=== PATIENT | male | born 2005 ===

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

== ENCOUNTER → 2023-12-07 14:43 | Outpatient (BNVA) | payer OTHER, SELFPAY | PROVIDERS: PCP Internal Medicine; Visit Provider Dietitian, Registered ==

== ENCOUNTER → 2024-12-25 15:20 | Outpatient (BNVA) | payer OTHER, SELFPAY | PROVIDERS: PCP Internal Medicine | DX: Z00.00 Encounter for general adult medical examination without abnormal findings (principal); K21.9 Gastro-esophageal reflux disease without esophagitis; L91.0 Hypertrophic scar; E53.8 Deficiency of other specified B group vitamins; E66.9 Obesity, unspecified; J45.20 Mild intermittent asthma, uncomplicated; L85.8 Other specified epidermal thickening | CPT/HCPCS: 96127; 99395 ==

== ENCOUNTER 2025-04-10 13:28 | Outpatient (AMB) | payer OTHER, SELFPAY ==
--- NOTE | 2025-04-10 13:33 | A.OFFVIS_ITS ---
Vital Signs 04/10/25 13:41 Height 5 ft 9 in Weight 266 lb 4 oz BMI 39.3 BP 151/73 H Blood Pressure Location Lt brachial Position Sitting Pulse 75 Intake Visit Reasons: F/up Keloid~ Rt postauricular (Dr Bagley's pt ) Intake Note: Patient is seen in office for follow up visit, following right postauricular keloid ( Dr Bunch's pt ). Pt c/o: admits to continued lumps on both earlobes, left side is more painful L.OV:10/10/24 (observation) Certified Medical Transcriptionist Required: Yes Certified Medical Transcriptionist Language: Reclamation Supervisor Services: Certified Medical Transcriptionist Present Certified Medical Transcriptionist Name: Gayle WALLACE Accompanied by: Self / Same As Patient Allergies No Known Allergies [No Known Allergies*] Allergy (Unverified 04/10/25 13:41) Medication List - Last Reconciled 04/10/25 by Raul Vásquez MD ammonium lactate 12% (AmLactin) 1 appl topical DAILY cyanocobalamin (vitamin B-12) 1,000 mcg PO DAILY folic acid 1 mg PO DAILY HPI Comments Details: 20-year-old male patient presenting for evaluation of bilateral ear growths. He was previously evaluated by Dr. Bagley for the similar condition in the decision made to continued observation. Since last year the lesion has increased in size and causes some discomfort. He denies any bleeding or discharge from the ear lobes. The growths are in the region of a previous ear piercing. He no longer uses the piercing however. He presents to discuss possible excision of these bilateral earlobe growths. [facility] Medical History Obesity (BMI 30.0-34.9) GERD (gastroesophageal reflux disease) Asthma Surgical History H/O plastic surgery History of circumcision Family History Father Diabetes HTN (hypertension) Mother Depression Paternal Grandmother Colon cancer Maternal Grandfather Myocardial infarction Social History Household Members: Family Housing: Apartment Alcohol intake: never Patient Tobacco Use Status: Never used Tobacco Tobacco use type: Cigarette e-Cigarette/Vaping Use: Never Used Second Hand Smoke Exposure: No service: No Current occupational status: employed Current occupation: [employer] Cognitive needs: No Hearing needs: No Vision needs: No Review of Systems Const All systems reviewed & are unremarkable except as noted in HPI and below Physical Exam Vital Signs: Last Vital Signs Pulse 75 04/10/25 13:41 BP 151/73 H 04/10/25 13:41 BMI result Body Mass Index 39.3 Const General: cooperative and no acute distress Nutritional Appearance: well nourished Orientation/consciousness: patient oriented x3 Limitations: no limitations HEENT Other: Bilateral ear lobes with a 1 cm raised subcutaneous lesion located in the posterior earlobe, possibly an epidermal inclusion cyst as a result of the previous piercing. No redness or discharge is appreciated. Head: Yes normocephalic and Yes atraumatic Ears: hearing grossly normal bilaterally Resp Effort & Inspection: normal respiratory effort, no audible wheezes, no cough and no respiratory distress Cardio Jugular venous distension: no JVD GI Inspection: Yes normal to inspection Skin Other: Warm, dry, no rash Neuro General: patient oriented x3 Extrem General: Yes no clubbing, cyanosis or edema Assessment & Plan Assessment & Plan (1) Epidermal inclusion cyst: Comment: Bilateral ear lobes posterior Code(s): L72.0 - Epidermal cyst Category: Medical Plan 20-year-old male patient presenting with enlarging bilateral posterior earlobe masses possibly epidermal inclusion cyst. Patient has requested excision of both lesions and after discussion of the procedure, risks, and alternatives, consents to the surgery. He will be scheduled as a minor surgery under local anesthesia. Coding Level of Care Code Est Pt Level 4 (04847) Diagnoses Epidermal inclusion cyst L72.0
[2025-04-10 13:41] VITALS: BP 151/73; PULSE 75; BMI 39.3
== END 2025-04-10 13:49 | disposition home or self-care (01) ==
LOC: HO.HGS 13:29
PROVIDERS: PCP Internal Medicine; Visit Provider Surgery
DX: L72.0 Epidermal cyst (principal)
CPT/HCPCS: 99214

== ENCOUNTER → 2025-04-10 13:28 | Outpatient (BNVA) | payer OTHER, SELFPAY | PROVIDERS: PCP Internal Medicine; Visit Provider Surgery | DX: L72.0 Epidermal cyst (principal) | CPT/HCPCS: 99212 ==

== ENCOUNTER 2025-05-03 13:11 | Outpatient (REF) | payer OTHER, SELFPAY ==
[2025-05-03 13:55] VITALS: BP 173/79; PULSE 100; RESP 18; TEMP 36.8; O2SAT 100; BMI 33.0
--- NOTE | 2025-05-03 14:21 | W.PM.OPN ---
Operative Note Operative Note Date of Service: 05/03/25 Narrative: Preoperative diagnosis: Bilateral earlobe cysts Postoperative diagnosis: Same Procedure: Excision of bilateral earlobe cysts Surgeon: Raul Vásquez MD Type Photography Supervisor: KATERYNA Holley Anesthesia: Lidocaine 1% with epinephrine Indications for procedure: 20-year-old male patient presenting with bilateral earlobe cysts left measuring approximately 1 cm in the right measuring approximately 0.5 cm. These are located at the site of a previous ear piercing. He has requested excision of the bilateral ear cyst. Operative findings: Left ear cyst measuring 1 cm diameter, right ear cyst measuring 0.5 cm diameter Specimen: Bilateral ear cysts Estimated blood loss: 2 mL Complications: None Procedure details: Patient was brought to the minor surgery suite and placed in a supine position. The site of the surgery was confirmed in the bilateral earlobes posteriorly. After assuring informed consent the skin of the left earlobe was prepped with Betadine and draped in a sterile fashion. Local anesthesia consisting of 1% lidocaine with epinephrine was then infiltrated around the left ear cyst. A 15 blade scalpel was then used to create a elliptical incision oriented longitudinally around the palpable cyst. This was carried out through subcutaneous tissue and around the lesion wall. The lesion was passed off the table and sent to pathology for further examination. Light pressure was held to maintain hemostasis. Skin was then closed using interrupted 5 0 nylon suture. Sterile dressings consisting of a sterile bandage was then applied. Attention was then directed to the right ear where again the skin was prepped with Betadine and draped in a sterile fashion. Local anesthesia was then infiltrated below the posterior ear cyst. An elliptical incision was then created around the ear cyst and carried down into the subcutaneous tissue. The lesion was then excised from the subcutaneous tissue and passed off the table. This was then sent to pathology for further examination. Light pressure was held to maintain hemostasis. Skin was then closed using interrupted 5 0 nylon sutures. Sterile dressings consisting of a sterile Band-Aid was then applied. The patient tolerated the procedure well. He was discharged to home in stable condition.
== END 2025-05-03 13:12 | disposition home or self-care (01) ==
LOC: HO.MS 13:11
PROVIDERS: PCP Internal Medicine; Visit Provider Surgery
PROC: (CPT 11441; principal; 2025-05-03 14:00)
DX: L72.0 Epidermal cyst (principal); L91.0 Hypertrophic scar
CPT/HCPCS: 11441; 11440; 88304; 88305; J2004

== ENCOUNTER → 2025-05-03 13:11 | Outpatient (BNV) | payer OTHER, SELFPAY | PROVIDERS: PCP Internal Medicine; Visit Provider Surgery | DX: L91.0 Hypertrophic scar (principal) | CPT/HCPCS: 11440; 11442 ==

== ENCOUNTER 2025-05-14 12:35 | Outpatient (AMB) | payer OTHER, SELFPAY ==
--- NOTE | 2025-05-14 12:46 | A.OFFVIS_ITS ---
Vital Signs 05/14/25 12:54 Height 5 ft 10 in Weight 263 lb BMI 37.7 BP 140/74 H Blood Pressure Location Rt brachial Position Sitting Pulse 66 Intake Visit Reasons: S/P exc. bilateral earlobe masses Intake Note: Patient is seen in office for post op assessment post excision bilateral earlobe masses. Reports incisions healing well. Pt c/o: no concerns. 3 sutures from Lt post earlobe and 2 from Rt post earlobe removed without incident. surgery:05/03/25 Veterinary Laboratory Diagnostician Required: No Accompanied by: Self / Same As Patient Allergies No Known Allergies [No Known Allergies*] Allergy (Unverified 05/14/25 12:55) Medication List - Last Reconciled 05/14/25 by Raul Vásquez MD ammonium lactate 12% (AmLactin) 1 appl topical DAILY cyanocobalamin (vitamin B-12) 1,000 mcg PO DAILY folic acid 1 mg PO DAILY HPI Comments Details: Patient returns 1 week following excision of bilateral earlobe lesions. He tolerated the procedure well and denies any ongoing issues. Pathology revealed a keloid in the left ear and hypertrophic scar in the right ear. He returns today for suture removal. [facility] Medical History Obesity (BMI 30.0-34.9) GERD (gastroesophageal reflux disease) Asthma Surgical History Hx of excision of epidermal inclusion cyst (05/03/25) H/O plastic surgery History of circumcision Family History Father Diabetes HTN (hypertension) Mother Depression Paternal Grandmother Colon cancer Maternal Grandfather Myocardial infarction Social History Household Members: Family Housing: Apartment Alcohol intake: never Comment: counts correct Patient Tobacco Use Status: Never used Tobacco Tobacco use type: Cigarette e-Cigarette/Vaping Use: Never Used Second Hand Smoke Exposure: No service: No Current occupational status: employed Current occupation: [employer] Cognitive needs: No Hearing needs: No Vision needs: No Physical Exam Vital Signs: Last Vital Signs Pulse 66 05/14/25 12:54 BP 140/74 H 05/14/25 12:54 BMI result Body Mass Index 37.7 Const General: no acute distress Nutritional Appearance: well nourished Orientation/consciousness: patient oriented x3 HEENT Other: Excision site in bilateral earlobes are clean, dry, and intact without redness or discharge. Skin Other: Warm and dry, no rash Neuro General: patient oriented x3 Assessment & Plan Assessment & Plan (1) Keloid: Code(s): L91.0 - Hypertrophic scar Category: Surgical Plan 20-year-old male patient returning following excision of bilateral earlobe lobe lesions. The left earlobe lesion pathology was keloid scar in the right side a dermal scar suggestive of hypertrophic scar. He tolerated the procedure well the wounds are healing nicely. Sutures removed and wounds found to be well healed. He should follow up as needed. Coding Level of Care Code Global (73779) Diagnoses Keloid L91.0
[2025-05-14 12:54] VITALS: BP 140/74; PULSE 66; BMI 37.7
== END 2025-05-14 13:03 | disposition home or self-care (01) ==
LOC: HO.HGS 12:36
PROVIDERS: PCP Internal Medicine; Visit Provider Surgery
DX: L91.0 Hypertrophic scar (principal)
CPT/HCPCS: 99024

== ENCOUNTER → 2025-05-14 12:35 | Outpatient (BNVA) | payer OTHER, SELFPAY | PROVIDERS: PCP Internal Medicine; Visit Provider Surgery | DX: L91.0 Hypertrophic scar (principal); Z98.890 Other specified postprocedural states | CPT/HCPCS: 99212 ==

== ENCOUNTER 2025-07-02 14:12 | Outpatient (AMB) | payer OTHER, SELFPAY ==
--- NOTE | 2025-07-02 14:23 | A.OFFPC_ITS ---
Vital Signs 07/02/25 14:24 Height 5 ft 10 in Weight 257 lb 4 oz BMI 36.9 BP 126/78 Blood Pressure Location Lt brachial Position Sitting Pulse 87 Pulse Source Pulse Oximeter Pulse Oximetry (%) 99 Oxygen Delivery Method Room Air Intake Visit Reasons: Med. review Milk Receiver Required: No Accompanied by: Self / Same As Patient Allergies No Known Allergies (No Known Allergies*) Allergy (Verified 07/02/25 14:46) Medication List - Last Reconciled 07/02/25 by Sarai Elizondo PA-C ammonium lactate 12% (AmLactin) 1 appl topical DAILY cyanocobalamin (vitamin B-12) 1,000 mcg PO DAILY folic acid 1 mg PO DAILY Tobacco use date assessed: 07/02/25 Dental Screening Dental Screen Date: 07/02/25 Did you have a dental visit in the last 12 months?: No Did you have a dental problem in the last 6 months where you did not have access to dental care?: No Was dental information given to patient?: No HPI Med. review HPI Details 20-year-old male with past medical histo ry of asthma and GERD last seen 11/2024 coming in for follow up. In review of the notes, patient was seen by General surgery 04/2025 for keloid s/p excision doing well advised to follow up as needed. japanese interpreter Marcelo [id number] was used for the duration of this visit Presenting with a follow-up on postoperative status and management of chronic conditions. The patient underwent ear surgery performed by a general surgeon. The patient reports no complications or issues following the procedure. The patient reports that his acid reflux is well-controlled without the need for medication. The patient has not experienced asthma symptoms recently and is not using inhalers. The patient was seen by a sales stock associate in April and was prescribed a topical cream for a rash. The patient does not recall the name of the cream. He does also mentioned bruising on the inside of the left knee without inciting event that has been improving over the last week or so [facility] Medical History Obesity (BMI 30.0-34.9) GERD (gastroesophageal reflux disease) Asthma Surgical History Hx of excision of epidermal inclusion cyst (05/03/25) H/O plastic surgery History of circumcision Family History Father Diabetes HTN (hypertension) Mother Depression Paternal Grandmother Colon cancer Maternal Grandfather Myocardial infarction Social History Household Members: Family Housing: Apartment Alcohol intake: never Comment: counts correct Patient Tobacco Use Status: Never used Tobacco Tobacco use type: Cigarette e-Cigarette/Vaping Use: Never Used Second Hand Smoke Exposure: No service: No Current occupational status: employed Current occupation: [employer] Cognitive needs: No Hearing needs: No Vision needs: No Questionnaire PHQ-9 Over the last 2 weeks, how often have you been bothered by any of the following problems? 1. Little interest or pleasure in doing things: not at all 2. Feeling down, depressed, or hopeless: not at all 3. Trouble falling or staying asleep, or sleeping too much: not at all 4. Feeling tired or having little energy: not at all 5. Poor appetite or overeating: not at all 6. Feeling bad about yourself - or that you are a failure or have let yourself or your family down: not at all 7. Trouble concentrating on things, such as reading the newspaper or watching television: not at all 8. Moving or speaking so slowly that other people could have noticed. Or the opposite - being so fidgety or restless that you have been moving around a lot more than usual: not at all 9. Thoughts that you would be better off or of hurting yourself in some way: not at all Total score: 0 Depression Screening Interpretation: Negative Depression Screening Done: Yes 31192 - PHQ-9 Billing: Yes Source: Developed by Drs. Steven Tamez, Jackelin Remy, Curtis Preciado and colleagues, with an educational good from [employer] Thrive Questionnaire Date Thrive assessed: 07/02/25 I am a: Patient What is your living situation today?: I have a steady place to live Within the past 12 months, did the food you bought not last and you didn't have the money to get more?: I choose not to answer this question Within the past 12 months, did you worry whether your food would run out before you got money to buy more?: I choose not to answer this question Do you have trouble paying for medicines?: I choose not to answer this question Do you have trouble getting transportation to medical appointments?: I choose not to answer this question Do you have trouble paying your heating and electricity bill?: I choose not to answer this question Do you have trouble taking care of your child, family member or friend?: I choose not to answer this question Do you have trouble with day-to-day activities such as bathing, preparing meals, shopping, managing finances, etc.?: I choose not to answer this question Are you currently unemployed and looking for a job?: I choose not to answer this question Are you interested in more education?: I choose not to answer this question Please select the resources that you would like help with: None Currently or been in a relationship where the following occur: No concerns reported THRIVE Score: 0 AUDIT C Alcohol Use Questionnaire (AUDIT-C) 1. How often do you have a drink containing alcohol?: Never 2. How many drinks containing alcohol do you have on a typical day when you are drinking?: 1 or 2 3. How often do you have six or more drinks on one occasion?: Never Total Score: 0 SY-7 AMB Questionnaire SY-7 Date SY - 7 assessed: 07/02/25 Feeling nervous, anxious, or on edge: 0 = Not at all Not being able to stop or control worryin = Not at all Worrying too much about different things: 0 = Not at all Trouble relaxin = Not at all Being so restless that it is hard to sit still: 0 = Not at all Becoming easily annoyed or irritable: 0 = Not at all Feeling afraid as if something awful might happen: 0 = Not at all Total SY-7 score (0-4 normal; 5-9 mild; 10-14 moderate; 15-21 severe): 0 Source: Developed by Drs. Steven Tamez, Jackelin Remy, Curtis Preciado and colleagues, with an educational good from [employer] SY-7 Assessment Billing SY-7 Assessment Tool: SY-7 Assessment 31678 Review of Systems Const Denies body aches, Denies chills, Denies fever(s), Denies headache(s) and Denies poor appetite Eyes Reports no additional complaints ENT Denies headache(s) Card Denies chest pain, Denies irregular heart rhythm, Denies lightheadedness and Denies dyspnea Resp Denies cough and Denies dyspnea GI Denies abdominal pain, Denies constipation, Denies diarrhea, Denies nausea and Denies vomiting Reports no additional complaints Musc Reports no additional complaints and Denies abnormal gait Skin/Breast Reports system reviewed and no additional complaints, except as documented Neuro Denies abnormal gait and Denies headache(s) Psych Reports no additional complaints Physical exam (Primary Care) Vital Signs: Last Vital Signs BP 126/78 07/02/25 14:24 Pulse Ox 87 L 07/02/25 14:24 Oxygen Delivery Method Room Air 07/02/25 14:24 BMI result Body Mass Index 36.9 Tobacco/Smoking Status: Tobacco use Status Tobacco use date assessed 07/02/25 07/02/25 14:28 Patient Tobacco Use Status Never used Tobacco 07/02/25 14:28 Tobacco use type Cigarette 07/02/25 14:28 e-Cigarette/Vaping Use Never Used 07/02/25 14:28 PHQ-9: PHQ-9 Score PHQ-9: Total score 0 07/02/25 14:28 Depression Screening Interpretation: Negative Thrive Assessment: Date of Thrive Assessment Date Thrive assessed 07/02/25 07/02/25 14:28 Currently or been in a relationship where the following occur: No concerns reported Const General: cooperative, healthy appearing, comfortable and no acute distress Orientation/consciousness: patient oriented x3 HENMT Head: Yes normocephalic Ears: hearing grossly normal bilaterally General nose exam: Normal external nose present Eyes General: appearance normal, both eyes and all related structures Conjunctivae: conjunctivae normal Neck Neck: Yes full ROM and Yes no lymphadenopathy Resp Effort & Inspection: normal respiratory effort Auscultation: clear to auscultation bilaterally, no crackles, no rales, no rhonchi and no wheezes Cardio Rate: regular rate Rhythm: regular rhythm Skin General skin exam: no rashes or lesions noted Neuro General: patient oriented x3 Gait exam (Neuro): Normal gait present Extrem Other: No tenderness, swelling, redness, warmth of bilateral calves. Small varicosity of the medial aspect of the left knee without erythema, tenderness, warmth General: Yes normal to inspection, Yes full ROM and No edema Psych Affect: normal affect Attitude: cooperative Insight: Good insight present (Psych) Judgement: Good judgement present (Psych) Coding Level of Care Code Est Pt Level 3 (22592) Diagnoses Deficiency of vitamin B12 E53.8 Obesity (BMI 30-39.9) E66.9 GERD (gastroesophageal reflux disease) K21.9 Mild intermittent asthma without complication J45.20 Asthma severity: mild Asthma persistence: intermittent Asthma complication type: uncomplicated Epidermal inclusion cyst L72.0 Varicose vein of leg I83.90 Additional Codes SY-7 Assessment Billing - SY-7 Assessment Tool: SY-7 Assessment 30449 ([id number]) PHQ-9 - 52548 - PHQ-9 Billing: Yes ([id number]) Assessment & Plan Assessment & Plan (1) Deficiency of vitamin B12: Code(s): E53.8 - Deficiency of other specified B group vitamins Category: Medical Plan: Ordered for updated blood work. (2) Obesity (BMI 30-39.9): Code(s): E66.9 - Obesity, unspecified Category: Medical Plan: Healthy diet and regular exercise is encouraged. (3) GERD (gastroesophageal reflux disease): Code(s): K21.9 - Gastro-esophageal reflux disease without esophagitis Category: Medical Plan: Avoid trigger foods such as citrus, tomato products, soda, caffeine, spicy foods and other foods that may be irritating to your stomach. Avoid laying flat 3-4 hours after eating and elevate the head of the bed 30 degrees to prevent acid from moving into the esophagus. No medication at this time (4) Asthma: Code(s): J45.909 - Unspecified asthma, uncomplicated Category: Medical Qualifiers: Asthma severity: mild Asthma persistence: intermittent Asthma complication type: uncomplicated Qualified Code(s): J45.20 - Mild intermittent asthma, uncomplicated Plan: Asthma currently controlled on present medications. Continue on albuterol as needed. Avoid triggers such as allergies. (5) Epidermal inclusion cyst: Comment: Bilateral ear lobes posterior Code(s): L72.0 - Epidermal cyst Category: Medical Plan: Removed by General surgery follow up as needed (6) Varicose vein of leg: Code(s): I83.90 - Asymptomatic varicose veins of unspecified lower extremity Category: Medical Plan: Patient does have the presence of a varicose vein on the medial aspect of the left knee. No calf swelling, tenderness, warmth or erythema and low suspicion for DVT at this time. The varicose veins not appear to be infected as it is not tender to palpation, erythematous or warm. Recommend leg elevation, exercise as tolerated in the use of compression stockings as needed. Reviewed red flag symptoms and when to present for re-evaluation Plan The patient will have blood work done in the next couple of months to monitor kidney, liver, electrolytes, thyroid, and vitamin levels. This is not a fasting test, so it can be completed at the patient's convenience. The patient is advised to continue taking vitamin , and levels will be checked to ensure adequacy. Follow-up is scheduled for November unless any issues arise from the blood work or if the patient experiences any new symptoms. This note was constructed using voice recognition software. While every effort has been made to ensure accuracy and delivery motorcycle driver, still areas may have been included sometimes these areas may affect the content or meeting of the given symptoms. Total time spent caring for the patient today was 20 minutes. This includes time spent before the visit reviewing the chart, time spent during the visit, and time spent after the visit and documentation. Patient was informed and verbally consented to the use of an ambient scribe for clinic note documentation during this visit. Orders: Orders Comprehensive Met. Panel Today E66.9 - Obesity, unspecified, K21.9 - Gastro- esophageal reflux disease without esophagitis TSH reflex Free T4 Today Z13.29 - Encounter for screening for other suspected endocrine disorder Free T4 (Free Thyroxine) Today Z13.29 - Encounter for screening for other suspected endocrine disorder Complete Blood Count Auto Diff Today E53.8 - Deficiency of other specified B group vitamins
[2025-07-02 14:24] VITALS: BP 126/78; PULSE 87; O2SAT 99; BMI 36.9
== END 2025-07-02 15:07 | disposition home or self-care (01) ==
LOC: HO.HMCH 14:13
PROVIDERS: PCP Internal Medicine
DX: K21.9 Gastro-esophageal reflux disease without esophagitis (principal); J45.20 Mild intermittent asthma, uncomplicated; L72.0 Epidermal cyst; I83.90 Asymptomatic varicose veins of unspecified lower extremity

== ENCOUNTER → 2025-07-02 14:12 | Outpatient (BNVA) | payer OTHER, SELFPAY | PROVIDERS: PCP Internal Medicine | DX: K21.9 Gastro-esophageal reflux disease without esophagitis (principal); J45.909 Unspecified asthma, uncomplicated; E53.8 Deficiency of other specified B group vitamins; L72.0 Epidermal cyst; I83.90 Asymptomatic varicose veins of unspecified lower extremity; E66.9 Obesity, unspecified; Z68.36 Body mass index [BMI] 36.0-36.9, adult | CPT/HCPCS: 96127; 99212 ==

== ENCOUNTER 2025-10-15 11:17 | Outpatient (AMB) | payer OTHER, SELFPAY ==
[2025-10-15 11:18] VITALS: BP 130/60; PULSE 66; O2SAT 100; BMI 37.4
--- NOTE | 2025-10-15 11:18 | AM.OFFWIN_ITS ---
Intake Vital Signs 10/15/25 11:18 Height 5 ft 10 in Weight 261 lb BMI 37.4 BP 130/60 Blood Pressure Location Lt brachial Position Sitting Pulse 66 Pulse Source Pulse Oximeter Pulse Oximetry (%) 100 Oxygen Delivery Method Room Air Intake Visit Reasons: EP Left foot pain Intake Note: Patient presents with left foot pain. Patient Tobacco Use Status: Never used Tobacco Allergies No Known Allergies (No Known Allergies*) Allergy (Verified 10/15/25 11:20) HPI HPI Comments History of Present Illness Details 20-year-old male presents to the walk-in clinic with left foot pain and swelling. Patient reports a vein on his left foot that is swollen and tender to touch. Denies recent trauma to the area. Reports being on his feet for long hours due to work at [employer]. Past medical history significant for morbid obesity and varicose veins in the lower extremities. Denies redness spreading proximally, fever, or systemic symptoms. PFSH Medical History Obesity (BMI 30.0-34.9) GERD (gastroesophageal reflux disease) Asthma Surgical History Hx of excision of epidermal inclusion cyst (05/03/25) H/O plastic surgery History of circumcision Family History Father Diabetes HTN (hypertension) Mother Depression Paternal Grandmother Colon cancer Maternal Grandfather Myocardial infarction Social History Household Members: Family Housing: Apartment Alcohol intake: never Comment: counts correct Patient Tobacco Use Status: Never used Tobacco Tobacco use type: Cigarette e-Cigarette/Vaping Use: Never Used Second Hand Smoke Exposure: No service: No Current occupational status: employed Current occupation: [employer] Cognitive needs: No Hearing needs: No Vision needs: No Physical Exam Vital Signs: Last Vital Signs Pulse 66 10/15/25 11:18 BP 130/60 10/15/25 11:18 Pulse Ox 100 10/15/25 11:18 Oxygen Delivery Method Room Air 10/15/25 11:18 BMI result Body Mass Index 37.4 Const General: no acute distress Nutritional Appearance: obese morbidly obese Orientation/consciousness: patient oriented x3 Neuro General: patient oriented x3, gait normal and moves all extremities Extrem Other: Left foot: Visible swelling over a superficial vein, tender on palpation, no obvious erythema or warmth extending beyond the affected vein Peripheral pulses: Present and symmetrical. No signs of cellulitis or open wounds noted Assessment & Plan Assessment & Plan (1) Varicose vein of leg: Code(s): I83.90 - Asymptomatic varicose veins of unspecified lower extremity Plan: Likely superficial thrombophlebitis of a varicose vein. Risk factors: Morbid obesity, prolonged standing, history of varicose veins. NSAIDs for pain and inflammation (if no contraindications). Compression stockings to support venous return Elevation of the affected limb when possible Warm compresses to affected area Advised frequent ambulation and calf exercises at work Weight management counseling F/U with PCP for possible referral to Vascular. Coding Level of Care Code Est Pt Level 4 (99911) Diagnoses Varicose vein of leg I83.90 Time Spent (min) 20
== END 2025-10-15 12:06 | disposition home or self-care (01) ==
PROVIDERS: PCP Internal Medicine; Visit Provider Nurse Practitioner Family
DX: I83.90 Asymptomatic varicose veins of unspecified lower extremity (principal)

== ENCOUNTER → 2025-10-15 11:17 | Outpatient (BNVA) | payer OTHER, SELFPAY | PROVIDERS: PCP Internal Medicine; Visit Provider Nurse Practitioner Family | DX: I83.92 Asymptomatic varicose veins of left lower extremity (principal); E66.01 Morbid (severe) obesity due to excess calories; Z68.37 Body mass index [BMI] 37.0-37.9, adult | CPT/HCPCS: 99212 ==